=== PATIENT | male | born 1945 | race Asian ===

== ENCOUNTER → 2016-10-15 | Outpatient (CLI) | payer MEDICARE, OTHER ==
[~2016-10-15] MED LIST: ACAR100T2 PO; ASPI-556 PO; GLYB5TAB8 PO; METF850T2 PO; PIOG45TA PO; TELM40 PO
== END | disposition home or self-care (01) ==
LOC: RADPV 09:56
PROVIDERS: ATTEND Internal Medicine
DX: I10 Essential (primary) hypertension (principal); I70.0 Atherosclerosis of aorta
CPT/HCPCS: 71020

== ENCOUNTER → 2018-01-24 | Outpatient (CLI) | payer MEDICARE, OTHER ==
[~2018-01-24] MED LIST changes: -PIOG45TA PO; +PIOG45TA4 PO
== END | disposition home or self-care (01) ==
LOC: RADPV 10:26
PROVIDERS: ATTEND Internal Medicine
DX: I70.0 Atherosclerosis of aorta (principal)
CPT/HCPCS: 71046

== ENCOUNTER → 2018-10-17 | Outpatient (CLI) | payer MEDICARE, OTHER ==
[~2018-10-17] MED LIST changes: +METF-961 PO; -METF850T2 PO
== END | disposition home or self-care (01) ==
LOC: RADPV 11:29
PROVIDERS: ATTEND Internal Medicine
DX: J40 Bronchitis, not specified as acute or chronic (principal); I70.0 Atherosclerosis of aorta